=== PATIENT | female | born 1985 | race Caucasian/White ===

== ENCOUNTER 2018-03-23 08:00 | Day surgery (SDC) | payer MEDICAID ==
[2018-03-09 14:50] LABS: BASOPHILS % (AUTO) 0.6 % (0-1); EOSINOPHILS # (AUTO) 0.1 X10'3 (0-0.9); EOSINOPHILS % (AUTO) 2.7 % (0-6); LYMPHOCYTES # (AUTO) 1.6 X10'3 (1.1-4.8); LYMPHOCYTES % (AUTO) 28.7 % (21-51); MEAN CORPUSCULAR HEMOGLOBIN 30.2 PG (27.0-31.0); MEAN CORPUSCULAR HGB CONC 33.8 % (33.0-36.5); MEAN CORPUSCULAR VOLUME 89.4 FL (78-98); MEAN PLATELET VOLUME 7.6 FL (7.4-10.4); MONOCYTES # (AUTO) 0.5 X10'3 (0-0.9); MONOCYTES % (AUTO) 8.6 % (2-12); NEUTROPHILS # (AUTO) 3.2 X10'3 (1.8-7.7); NEUTROPHILS % (AUTO) 59.4 % (42-75); PRE OP HEMATOCRIT 38.1 % (35.0-45.0); PRE OP HEMOGLOBIN 12.9 g/dL (12.0-16.0); PRE OP PLATELET COUNT 254 X10'3 (140-440); RED BLOOD COUNT 4.26 X10'6 (4.20-5.60); RED CELL DISTRIBUTION WIDTH 12.9 % (11.5-14.5)
[2018-03-09 15:40] LABS: HCG SERUM QL NEGATIVE
[2018-03-23] VITALS (12 sets, daily range): BP systolic 109–129; BP diastolic 60–81
[~2018-03-23] VITALS: Ht 177.8 cm; Wt 99.1 kg
[~2018-03-23 08:00] MED LIST: NO HOME MEDS; ceFAZolin 1GM/D5W- ADD-VANTAGE 50 ML IV ONE; famotidine 20mg tablet PO ONE; ringers solution, lacted 1,000 ML IV SCH
[2018-03-23] MEDS ORDERED: BUPIVAcaine/PF 2.5mg/ml (0.25%) 10ml vial ONE ×2 (09:34→10:36)
[2018-03-23] MEDS ORDERED: LIDOcaine 0.5% (5mg/ml) 50ml vial ONE (09:45)
[2018-03-23] MEDS ORDERED: fentaNYL/PF 50MCG/1 ML 2ML syringe ONE (09:48)
[2018-03-23] MEDS ORDERED: midazolam 2 mg/2 ml injection ONE ×2 (09:49→09:55)
[2018-03-23] MEDS ORDERED: ringers solution, lacted 1,000 ML IV SCH (10:36)
[2018-03-23] MEDS ORDERED: propofol inj 20 ML IV ONE (10:39)
[2018-03-23] MEDS ORDERED: ondansetron/PF 4mg/2ml inj IV PRN (10:40)
[2018-03-23] MEDS ORDERED: proCHLORperazine 10 MG/2 ml inj IV PRN (10:40)
[2018-03-23] MEDS ORDERED: meperidine/PF 25mg/ml syringe IV PRN ×3 (10:40)
[2018-03-23] MEDS ORDERED: morphine 4 MG/ML inj SYRINge IV PRN ×2 (10:40)
--- NOTE | 2018-03-23 10:45 | NUR ---
Received from OR via [facility], accompanied by Anesthesiologist DR VAUGHAN and report given by Anesthesiologist. PT VERY DROWSY, VSS, RIGHT HAND/WRIST W/DRSG, ARASH WRAP CDI, FINGERS PWD. Addendum: 03/23/18 at 1101 by Dianne Luke RN Amended: Links added.
== END 2018-03-23 12:35 | disposition home or self-care (01) ==
LOC: PAS 08:00
PROVIDERS: ATTEND Orthopaedic Surgery Hand Surgery
DX: M65.831 Other synovitis and tenosynovitis, right forearm (principal); M25.831 Other specified joint disorders, right wrist; G89.29 Other chronic pain; F32.9 Major depressive disorder, single episode, unspecified; F41.8 Other specified anxiety disorders; Z87.440 Personal history of urinary (tract) infections; Z72.89 Other problems related to lifestyle; Z98.51 Tubal ligation status; Z79.891 Long term (current) use of opiate analgesic; Z79.899 Other long term (current) drug therapy; Z98.890 Other specified postprocedural states
CPT/HCPCS: 29846; 36415; 84703; 85025; A6449; J0690; J2001; J2175; J2250; J2405; J2704; J3010; J3490; J7120; A7000

== ENCOUNTER 2018-09-28 05:20 | Day surgery (SDC) | payer MEDICAID ==
[2018-09-24 11:52] LABS: BASOPHILS % (AUTO) 0.7 % (0-1); EOSINOPHILS # (AUTO) 0.2 X10'3 (0-0.9); EOSINOPHILS % (AUTO) 3.1 % (0-6); LYMPHOCYTES # (AUTO) 1.6 X10'3 (1.1-4.8); LYMPHOCYTES % (AUTO) 31.6 % (21-51); MEAN CORPUSCULAR HEMOGLOBIN 30.2 PG (27.0-31.0); MEAN CORPUSCULAR HGB CONC 33.6 g/dL (33.0-36.5); MEAN CORPUSCULAR VOLUME 90.1 FL (78-98); MEAN PLATELET VOLUME 7.8 FL (7.4-10.4); MONOCYTES # (AUTO) 0.5 X10'3 (0-0.9); MONOCYTES % (AUTO) 10.1 % (2-12); NEUTROPHILS # (AUTO) 2.7 X10'3 (1.8-7.7); NEUTROPHILS % (AUTO) 54.5 % (42-75); PRE OP HEMATOCRIT 37.9 % (35.0-45.0); PRE OP HEMOGLOBIN 12.7 g/dL (12.0-16.0); PRE OP PLATELET COUNT 249 X10'3 (140-440); RED BLOOD COUNT 4.21 X10'6 (4.20-5.60); RED CELL DISTRIBUTION WIDTH 12.9 % (11.5-14.5)
[2018-09-28] VITALS (12 sets, daily range): BP systolic 103–120; BP diastolic 56–78
[~2018-09-28] VITALS: Ht 177.8 cm; Wt 72.9 kg
[~2018-09-28 05:20] MED LIST changes: -ceFAZolin 1GM/D5W- ADD-VANTAGE 50 ML IV ONE; -famotidine 20mg tablet PO ONE; -ringers solution, lacted 1,000 ML IV SCH
[2018-09-28] MEDS ORDERED: ringers solution, lacted 1,000 ML IV SCH ×2 (05:45→07:22)
[2018-09-28] MEDS ORDERED: ceFAZolin 1GM/D5W- ADD-VANTAGE 50 ML IV ONE (05:45)
[2018-09-28] MEDS ORDERED: famotidine 20mg tablet PO ONE (05:45)
[2018-09-28] MEDS ORDERED: LIDOcaine 1% (10mg/ml) 2ml vial ONE (06:07)
[2018-09-28] MEDS ORDERED: scopolamine 1.5mg patch.TD72 TD ONE (06:20)
[2018-09-28] MEDS ORDERED: BUPIVAcaine/PF 2.5 mg/ml (0.25%) 30ml vial ONE (07:16)
[2018-09-28] MEDS ORDERED: propofol 10mg/ml 20ml vial IV ONE (07:22)
[2018-09-28] MEDS ORDERED: morphine 4 MG/ML inj SYRINge IV PRN ×2 (07:25)
[2018-09-28] MEDS ORDERED: proCHLORperazine 10 MG/2 ml inj IV PRN (07:25)
[2018-09-28] MEDS ORDERED: meperidine/PF 25mg/ml syringe IV PRN ×3 (07:25)
[2018-09-28] MEDS ORDERED: ondansetron/PF 4mg/2ml inj IV PRN (07:25)
[2018-09-28] MEDS ORDERED: LIDOcaine 1% 30ml preserv. free vial ONE (07:31)
[2018-09-28] MEDS ORDERED: fentaNYL/PF 50MCG/1 ML 2ML syringe ONE (07:34)
[2018-09-28] MEDS ORDERED: MIDAZolam 5mg/5ml vial ONE (07:36)
[2018-09-28] MEDS ORDERED: ketorolac trometh. 30mg/ml inj. ONE (07:37)
[2018-09-28] MEDS ORDERED: 0.9 % SODIUM CHLORIDE 10 ML VIAL ONE (07:42)
--- NOTE | 2018-09-28 08:15 | NUR ---
Received from OR via [facility], accompanied by Anesthesiologist DR. TROTTER and report given by Anesthesiolgist. PT ARRIVED ON RA VSS. 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 OLGUIN WITH GOOD CSM. DRESSING CDI. ICE TO RT BACK OF HAND
--- NOTE | 2018-09-28 09:15 | NUR ---
Report called to receiving nurse LENNY. Transferred TO PAS via GURNEY WITH Belongings X1 BAG. Special Issues communicated to receiving nurse. PT SLOW TO WAKE NEED TIME TO SLEEP. VSS ON RA. DRESSING CDI.
--- NOTE | 2018-09-28 09:16 | NUR ---
PLEASE NOTE PT'S 0910 TIME FOR RECIEVED TO PAS UNIT IS ACTUALLY 0916.
== END 2018-09-28 11:20 | disposition home or self-care (01) ==
LOC: PAS 05:20
PROVIDERS: ATTEND Orthopaedic Surgery Hand Surgery
DX: S63.8X1A Sprain of other part of right wrist and hand, initial encounter (principal); G90.511 Complex regional pain syndrome I of right upper limb; F41.8 Other specified anxiety disorders; Z79.899 Other long term (current) drug therapy; Z98.51 Tubal ligation status; M65.841 Other synovitis and tenosynovitis, right hand; Z98.890 Other specified postprocedural states; X58.XXXA Exposure to other specified factors, initial encounter; Y93.89 Activity, other specified; Y92.89 Other specified places as the place of occurrence of the external cause; Y99.8 Other external cause status
CPT/HCPCS: 29846; 36415; 82948; 85025; J0690; J1885; J2001; J2250; J2405; J3010; J3490; J7120; A6449; A7000; J2704

== ENCOUNTER 2022-01-03 08:09 | Inpatient (IN) | payer MEDICAID ==
[2021-12-28 10:55] LABS: ALBUMIN/GLOBULIN RATIO 1.1 (1.1-1.5); ALKALINE PHOSPHATASE 53 IU/L (46-116); BLOOD UREA NITROGEN 10 MG/DL (7-18); BUN/CREATININE RATIO 17.5 (6.6-38.0); CHLORIDE 104 MMOL/L (99-107); CREATININE 0.57 MG/DL (0.40-0.90); PRE OP ALT 13 U/L (30-65); PRE OP ANION GAP 7 (8-16); PRE OP AST 10 U/L (10-37); PRE OP BILIRUB, TOTAL 0.6 MG/DL (0.0-1.0); PRE OP GLUCOSE 75 MG/DL (70-104); PRE OP POTASSIUM 4.1 MMOL/L (3.4-5.1); PRE OP SODIUM 141 MMOL/L (135-145); TOTAL PROTEIN 7.7 G/DL (6.4-8.2); eGFR > 90 ML/MIN
[2021-12-28 11:02] LABS: BASOPHILS % (AUTO) 0.7 % (0-1); EOSINOPHILS # (AUTO) 0.1 X10'3 (0-0.9); EOSINOPHILS % (AUTO) 1.9 % (0-6); LYMPHOCYTES # (AUTO) 1.4 X10'3 (1.1-4.8); LYMPHOCYTES % (AUTO) 30.1 % (21-51); MEAN CORPUSCULAR HEMOGLOBIN 30.9 PG (27.0-31.0); MEAN CORPUSCULAR HGB CONC 34.2 g/dL (33.0-36.5); MEAN CORPUSCULAR VOLUME 90.3 FL (78-98); MEAN PLATELET VOLUME 7.7 FL (7.4-10.4); MONOCYTES # (AUTO) 0.4 X10'3 (0-0.9); MONOCYTES % (AUTO) 9.7 % (2-12); NEUTROPHILS # (AUTO) 2.7 X10'3 (1.8-7.7); NEUTROPHILS % (AUTO) 57.6 % (42-75); PRE OP HEMATOCRIT 38.9 % (35.0-45.0); PRE OP HEMOGLOBIN 13.3 g/dL (12.0-16.0); PRE OP PLATELET COUNT 237 X10'3 (140-440); RED CELL DISTRIBUTION WIDTH 12.9 % (11.5-14.5)
[2021-12-28 11:06] LABS: HCG SERUM QL NEGATIVE
[2022-01-03] VITALS (37 sets, daily range): BP systolic 102–123; BP diastolic 57–76
[~2022-01-03] VITALS: Ht 177.8 cm; Wt 73.5 kg
[~2022-01-03 08:09] MED LIST changes: +DICL100G30 TOP; +ESCI-8 PO; +ETHY1TAB6 PO; -NO HOME MEDS; +TRAZ-251 PO; +famotidine 20mg tablet PO ONE; +meperidine/PF 25mg/ml syringe IV PRN; +morphine 2 MG/ML inj. syringe IV PRN; +morphine 4 MG/ML inj SYRINge IV PRN; +ondansetron/PF 4mg/2ml inj IV PRN; +ringers solution, lacted 1,000 ML IV SCH
[2022-01-03] MEDS ORDERED: ceFOXitin 2GM-NS 100mL ADDvant 100 ML IV ONE ×2 (08:30→08:35)
[2022-01-03] MEDS: ringers solution, lacted 1,000 ML IV SCH ×4 (09:03→20:50)
[2022-01-03] MEDS ORDERED: BUPIVAcaine/PF 5 mg/ml 10ml ONE (10:00)
[2022-01-03] MEDS ORDERED: LIDOCAINE 1%/EPI 1:100,000 inj. 10 ML multi-dose vial ONE (10:01)
[2022-01-03] MEDS ORDERED: ceFAZolin 1000mg inj ONE (10:01)
[2022-01-03] MEDS ORDERED: aprepitant 40mg capsule PO ONE (10:12)
[2022-01-03] MEDS ORDERED: midazolam 1 mg/ML 2ml injection ONE (10:26)
[2022-01-03] MEDS ORDERED: fentaNYL /PF 50mcg/ml 5ml ampule ONE (10:26)
[2022-01-03] MEDS ORDERED: propofol inj 20 ML IV ONE (10:29)
[2022-01-03] MEDS ORDERED: LIDOcaine 1%/PF 5ML 10 MG/ML VIAL ONE (10:29)
[2022-01-03] MEDS ORDERED: rocuronium 10mg/ml inj IV ONE (10:33)
[2022-01-03] MEDS ORDERED: ondansetron/PF 4mg/2ml inj ONE (12:24)
[2022-01-03] MEDS ORDERED: oxyCODONE/APAP 5-325mg tablet PO PRN (12:50)
[2022-01-03] MEDS ORDERED: diphenhydrAMINE 50 mg/ml inj IV PRN (12:50)
[2022-01-03] MEDS ORDERED: normal saline 500ML IV soln IV PRN (12:50)
[2022-01-03] MEDS ORDERED: normal saline 1000ml 1,000 ML IV SCH (12:50)
[2022-01-03] MEDS ORDERED: ondansetron/PF 4mg/2ml inj IV PRN (12:50)
[2022-01-03] MEDS ORDERED: temazepam 15mg capsule PO PRN (12:50)
[2022-01-03] MEDS ORDERED: mag hydrox/Alum hydrox/simeth 30ml oral suspension PO PRN (12:50)
[2022-01-03] MEDS ORDERED: naloxone 0.4 mg/ml inj IV PRN ×2 (12:50)
[2022-01-03] MEDS: simethicone 80mg chew tab PO SCH ×2 (13:00→18:00)
--- NOTE | 2022-01-03 13:00 | NUR ---
Received from OR via BED, accompanied by Anesthesiologist DR RUEDA and report given by Anesthesiologist AND [employer]. PT DROWSY, DENIES PAIN. ABDOMEN W/3 LAP SITES W/DERMABOND CDI, INDIGO PAD IN PLACE. WESTON CATHETER TO GRAVITY DRAINAGE W/BRIGHT YELLOW URINE IN DRAINAGE BAG. Addendum: 01/03/22 at 1338 by Dianne Luke RN Amended: Links added.
[2022-01-03] MEDS: meperidine/PF 25mg/ml syringe IV PRN ×2 (13:41→14:23)
[2022-01-03] MEDS: proCHLORperazine 10 MG/2 ml inj IV PRN ×2 (13:46→14:16)
[2022-01-03] MEDS: HYDROmorph/NS 0.2 mg/ml PCA 100 ML IV SCH ×6 (15:00→23:00)
[2022-01-03] MEDS: ketorolac trometh. 30mg/ml inj. IV PRN (15:01)
[2022-01-03] MEDS ORDERED: scopolamine 1.5mg patch.TD72 (72-hour patch) TD ONE (15:10)
[2022-01-03] MEDS ORDERED: scopolamine 1mg/72 hr patch TD ONE (15:35)
[2022-01-03] MEDS ORDERED: LORazepam 2 mg/ml vial IV PRN (16:10)
[2022-01-03] MEDS: phenazopyridine 100mg tablet PO PRN (16:31)
--- NOTE | 2022-01-03 17:20 | NUR ---
Report called to receiving nurse. 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 Transferred via BED, 1 BAG OF Belongings SENT W/PT TO ROOM 347B. BLL, CALL LIGHT GIVEN, SIDE RAILS UP X 2, RECEIVING RN AT BEDSIDE TO RECEIVE PT, ATTACHED PT TO VS. Special Issues communicated to receiving nurse. YES. Addendum: 01/03/22 at 1751 by Dianne Luke RN Amended: Links added.
--- NOTE | 2022-01-03 18:34 | NUR ---
Problems reprioritized. Patient report given, questions answered & plan of care reviewed with Alina Fuller RN.
--- NOTE | 2022-01-03 18:35 | NUR ---
Patient in room [facility]. I have received report from AL PAULSON and had the opportunity to ask questions and assume patient care.
[2022-01-03] MEDS: docusate sod 100mg capsule PO SCH (20:00)
[2022-01-04] MEDS: HYDROmorph/NS 0.2 mg/ml PCA 100 ML IV SCH ×5 (01:00→09:00)
[2022-01-04 02:00] VITALS: BP 101/52
[2022-01-04] MEDS: ringers solution, lacted 1,000 ML IV SCH ×2 (02:26→09:44)
[2022-01-04 06:00] VITALS: BP 100/54
--- NOTE | 2022-01-04 06:30 | NUR ---
Problems reprioritized. Patient report given, questions answered & plan of care reviewed with AL PAULSON.
--- NOTE | 2022-01-04 07:10 | NUR ---
Patient in room [facility] 347. I have received report from Alina Fuller RN and had the opportunity to ask questions and assume patient care.
[2022-01-04 07:27] LABS: BASOPHILS % (AUTO) 0.1 % (0-1); EOSINOPHILS % (AUTO) 0 % (0-6); HEMOGLOBIN 11.6 g/dl (12.0-16.0); LYMPHOCYTES % (AUTO) 7.3 % (21-51); MEAN CORPUSCULAR HEMOGLOBIN 30.4 PG (27.0-31.0); MEAN CORPUSCULAR VOLUME 89.3 FL (78-98); MEAN PLATELET VOLUME 7.6 FL (7.4-10.4); MONOCYTES % (AUTO) 7.2 % (2-12); NEUTROPHILS # (AUTO) 11.8 X10'3 (1.8-7.7); NEUTROPHILS % (AUTO) 85.4 % (42-75); PLATELET COUNT 216 X10'3 (140-440); RED BLOOD COUNT 3.81 X10'6 (4.20-5.60); RED CELL DISTRIBUTION WIDTH 12.2 % (11.5-14.5); WHITE BLOOD COUNT 13.8 X10'3 (4.5-11.0)
[2022-01-04] MEDS: ketorolac trometh. 30mg/ml inj. IV PRN ×2 (07:33→16:21)
[2022-01-04] MEDS: docusate sod 100mg capsule PO SCH (07:46)
[2022-01-04] MEDS: simethicone 80mg chew tab PO SCH ×2 (07:47→13:26)
[2022-01-04 07:54] LABS: ALBUMIN 3.1 G/DL (3.4-5.0); ANION GAP 7 (8-16); BLOOD UREA NITROGEN 8 MG/DL (7-18); BUN/CREATININE RATIO 12.1 (6.6-38.0); CALCIUM 8.3 MG/DL (8.5-10.1); CHLORIDE 105 MMOL/L (99-107); CREATININE 0.66 MG/DL (0.40-0.90); GLUCOSE 118 MG/DL (70-104); POTASSIUM 3.8 MMOL/L (3.5-5.1); SODIUM 139 MMOL/L (135-145); TOTAL CARBON DIOXIDE 26.8 MMOL/L (24-32); eGFR > 90 ML/MIN
[2022-01-04] MEDS: phenazopyridine 100mg tablet PO PRN (09:37)
[2022-01-04] MEDS: oxyCODONE/APAP 5-325mg tablet PO PRN ×2 (10:52→16:36)
[2022-01-04] MEDS ORDERED: PCA WASTE DOCUMENTATION MC SCH (11:05)
[2022-01-04 12:39] VITALS: BP 100/63
[2022-01-04 14:25] VITALS: BP 108/71
[2022-01-04] MEDS ORDERED: LIDOcaine 2% 10ml TOPICAL JELLY (Urojet) TP ONE (14:59)
--- NOTE | 2022-01-04 16:50 | NUR ---
Student documentation: I have reviewed and agree with all interventions, assessments performed and documented by DEANNA ANNE [facility] STUDENT.
--- NOTE | 2022-01-04 17:45 | NUR ---
Patients discharge instructions reviewed with patient mother in law all questions answered. Educated on how to empty elias and elias care. Patients mother in law verbalized understanding and mother in law did a return demonstration on how to empty elias. Patients IV dc'd cannula intact. Patient was assisted in getting dressed. patient states has all belongings. Patient was taken to mother in laws vehicle via wheelchair.
--- NOTE | 2022-01-05 08:58 | NUR ---
Pt phoned stating she has much more abdominal distention than at DC'g. Pt stated she's left messages at Dr Jackson's office and has not received a rtn call. This RN contacted Dr Jackson and she stated she would call Stew directly. Stew was notified of same.
== END 2022-01-04 18:00 | disposition home or self-care (01) | DRG 513 ==
LOC: PAS 08:09 → OBSVTOIN 17:04 → SUR 3N 17:04
PROVIDERS: ADMIT Obstetrics & Gynecology; ATTEND Obstetrics & Gynecology
PROC: 0UT7FZZ Resection of Bilateral Fallopian Tubes, Via Natural or Artificial Opening With Percutaneous Endoscopic Assistance (ICD-10-PCS; 2022-01-03)
PROC: 0USG4ZZ Reposition Vagina, Percutaneous Endoscopic Approach (ICD-10-PCS; 2022-01-03)
PROC: 0TJB8ZZ Inspection of Bladder, Via Natural or Artificial Opening Endoscopic (ICD-10-PCS; 2022-01-03)
PROC: 0UT9FZZ Resection of Uterus, Via Natural or Artificial Opening With Percutaneous Endoscopic Assistance (ICD-10-PCS; principal; 2022-01-03 10:20)
DX: N92.0 Excessive and frequent menstruation with regular cycle (principal); F32.A Depression, unspecified; N80.03 Adenomyosis of the uterus; F41.9 Anxiety disorder, unspecified; N81.4 Uterovaginal prolapse, unspecified; N94.6 Dysmenorrhea, unspecified
CPT/HCPCS: 36415; 80048; 80053; 82948; 84703; 85025; 86885; 86900; 86901; 87081; A4314; A4355; A4618; A6250; A6258; A7000; C1758; G0378; J0690; J0780; J1170; J1885; J2060; J2175; J2250; J2405; J2704; J3010; J3490; J7120; J8501

== ENCOUNTER 2022-02-16 10:20 | Emergency (ER) | payer MEDICAID ==
[~2022-02-16] VITALS: Ht 177.8 cm; Wt 72.7 kg
[2022-02-16 11:03] LABS: BASOPHILS % (AUTO) 0.7 % (0-1); EOSINOPHILS # (AUTO) 0.1 X10'3 (0-0.9); EOSINOPHILS % (AUTO) 2.6 % (0-6); HEMATOCRIT 38.1 % (35.0-45.0); HEMOGLOBIN 12.7 g/dl (12.0-16.0); LYMPHOCYTES # (AUTO) 1.5 X10'3 (1.1-4.8); LYMPHOCYTES % (AUTO) 28.9 % (21-51); MEAN CORPUSCULAR HEMOGLOBIN 29.9 PG (27.0-31.0); MEAN CORPUSCULAR HGB CONC 33.4 g/dL (33.0-36.5); MEAN CORPUSCULAR VOLUME 89.3 FL (78-98); MEAN PLATELET VOLUME 7.4 FL (7.4-10.4); MONOCYTES # (AUTO) 0.4 X10'3 (0-0.9); MONOCYTES % (AUTO) 8.3 % (2-12); NEUTROPHILS # (AUTO) 3.2 X10'3 (1.8-7.7); NEUTROPHILS % (AUTO) 59.5 % (42-75); PLATELET COUNT 265 X10'3 (140-440); RED BLOOD COUNT 4.26 X10'6 (4.20-5.60); RED CELL DISTRIBUTION WIDTH 12.7 % (11.5-14.5); WHITE BLOOD COUNT 5.3 X10'3 (4.5-11.0)
[2022-02-16] MEDS ORDERED: ketorolac trometh inj. 60 MG/2 ML VIAL IM ONE (12:50)
[2022-02-16] MEDS ORDERED: ondansetron 4mg rapidly disintigrating tab PO ONE (12:50)
[2022-02-16 14:20] LABS: URINE HCG NEGATIVE (NEG)
[2022-02-16 14:28] LABS: CLARITY,URINE CLOUDY (Clear); COLOR,URINE YELLOW (Yellow); GLUCOSE, URINE NEGATIVE (Neg); KETONES,URINE NEGATIVE (Neg); LEUKOCYTE ESTERASE ,URINE LARGE (Neg); NITRITES, URINE NEGATIVE (Neg); OCCULT BLOOD,URINE TRACE-INTACT (Neg); PROTEIN,URINE NEGATIVE (Neg); UROBILINOGEN,URINE 0.2 E.U/dL (0.2-1.0)
[2022-02-16 14:36] LABS: UA COLLECTION TYPE CLN CATCH MIDSTREAM
[2022-02-16 14:42] LABS: ALANINE AMINOTRANSFERASE 9 U/L (12-78); ALBUMIN 3.8 G/DL (3.4-5.0); ALKALINE PHOSPHATASE 55 IU/L (46-116); ANION GAP 12 (8-16); ASPARTATE AMINO TRANSFERASE 11 U/L (10-37); BILIRUBIN,TOTAL 0.6 MG/DL (0.1-1.0); BLOOD UREA NITROGEN 7 MG/DL (7-18); BUN/CREATININE RATIO 11.5 (6.6-38.0); CALCIUM 9.1 MG/DL (8.5-10.1); CHLORIDE 105 MMOL/L (99-107); CREATININE 0.61 MG/DL (0.40-0.90); GLUCOSE 84 MG/DL (70-104); LIPASE 118 U/L (73-393); SODIUM 143 MMOL/L (135-145); TOTAL CARBON DIOXIDE 26.4 MMOL/L (24-32); TOTAL PROTEIN 7.5 G/DL (6.4-8.2); eGFR > 90 ML/MIN
[2022-02-16 14:50] LABS: RBC,URINE NONE SEEN /HPF (0-2); WBC,URINE 50-100 /HPF (0-4)
[2022-02-16 14:51] LABS: BACTERIA,URINE 2+ /HPF (Neg); MUCUS STRANDS MODERATE /LPF (Neg); SQUAMOUS EPITHELIAL CELL,UR MANY /LPF (FEW)
[2022-02-16] MEDS ORDERED: CEPH-585 PO (14:51)
[2022-02-16 14:52] LABS: WBC CLUMPS,URINE FEW /HPF (NEGATIVE)
[2022-02-16 15:19] VITALS: BP 100/65
--- NOTE | 2022-02-16 15:23 | NUR ---
pT REMAINS STABLE WITH NO NEW COMPLAINTS. VERBALIZED UNDERSTANDING OF ALL DC INSTRUCITONS AND RX EDUCATION. PT AMBUALTORY WITH STEADY GAIT. ALL BELONGINGS TAKEN BY PATIENT.
== END 2022-02-16 15:35 | disposition home or self-care (01) ==
LOC: ER 10:21
DX: T81.9XXA Unspecified complication of procedure, initial encounter (principal); R10.11 Right upper quadrant pain; R10.30 Lower abdominal pain, unspecified; N39.0 Urinary tract infection, site not specified; Z79.1 Long term (current) use of non-steroidal anti-inflammatories (NSAID)
CPT/HCPCS: 36415; 76700; 80053; 81001; 81025; 83690; 85025; 96372; 99284; J1885

== ENCOUNTER 2022-06-16 11:16 | Emergency (ER) | payer MEDICAID ==
[~2022-06-16] VITALS: Ht 177.8 cm; Wt 75.0 kg
[~2022-06-16 11:16] MED LIST changes: +CEPH-585 PO; -DICL100G30 TOP; -ESCI-8 PO; -ETHY1TAB6 PO; -TRAZ-251 PO; -famotidine 20mg tablet PO ONE; -meperidine/PF 25mg/ml syringe IV PRN; -morphine 2 MG/ML inj. syringe IV PRN; -morphine 4 MG/ML inj SYRINge IV PRN; -ondansetron/PF 4mg/2ml inj IV PRN; -ringers solution, lacted 1,000 ML IV SCH
[2022-06-16 11:39] VITALS: BP 102/76
[2022-06-16] MEDS ORDERED: ketorolac trometh. 30mg/ml inj. IM ONE (12:40)
== END 2022-06-16 12:57 | disposition home or self-care (01) ==
LOC: ER 11:17
DX: G62.89 Other specified polyneuropathies (principal); M25.531 Pain in right wrist; Z87.448 Personal history of other diseases of urinary system; Z90.49 Acquired absence of other specified parts of digestive tract
CPT/HCPCS: 96372; 99284; J1885

== ENCOUNTER 2023-08-18 06:34 | Inpatient (IN) | payer MEDICAID ==
[2023-08-11 10:31] LABS: BASOPHILS % (AUTO) 0.8 % (0-1); EOSINOPHILS # (AUTO) 0.2 X10'3 (0-0.9); EOSINOPHILS % (AUTO) 4.1 % (0-6); LYMPHOCYTES # (AUTO) 1.4 X10'3 (1.1-4.8); LYMPHOCYTES % (AUTO) 24.6 % (21-51); MEAN CORPUSCULAR HEMOGLOBIN 29.9 PG (27.0-31.0); MEAN CORPUSCULAR HGB CONC 33.1 g/dL (33.0-36.5); MEAN CORPUSCULAR VOLUME 90.5 FL (78-98); MEAN PLATELET VOLUME 7.5 FL (7.4-10.4); MONOCYTES # (AUTO) 0.5 X10'3 (0-0.9); MONOCYTES % (AUTO) 8.6 % (2-12); NEUTROPHILS # (AUTO) 3.5 X10'3 (1.8-7.7); NEUTROPHILS % (AUTO) 61.9 % (42-75); PRE OP HEMATOCRIT 38.2 % (35.0-45.0); PRE OP HEMOGLOBIN 12.6 g/dL (12.0-16.0); PRE OP PLATELET COUNT 266 X10'3 (140-440); PRE OP WHITE BLOOD COUNT 5.7 10'3 (4.8-10.8); RED BLOOD COUNT 4.22 X10'6 (4.20-5.60); RED CELL DISTRIBUTION WIDTH 13.5 % (11.5-14.5)
[2023-08-11 10:37] LABS: BILIRUBIN,URINE NEGATIVE (Neg); CLARITY,URINE CLOUDY (Clear); COLOR,URINE YELLOW (Yellow); GLUCOSE, URINE NEGATIVE (Neg); KETONES,URINE NEGATIVE (Neg); LEUKOCYTE ESTERASE ,URINE NEGATIVE (Neg); NITRITES, URINE NEGATIVE (Neg); OCCULT BLOOD,URINE NEGATIVE (Neg); PH,URINE 6.5 (4.8-8.0); PROTEIN,URINE NEGATIVE (Neg); UROBILINOGEN,URINE 0.2 E.U/dL (0.2-1.0)
[2023-08-11 10:43] LABS: PRE OP PROTIME 10.3 SECONDS (9.0-12.0)
[2023-08-11 10:43] LABS: UA COLLECTION TYPE NON-SPECIFIED
[2023-08-11 10:44] LABS: BACTERIA,URINE 3+ /HPF (Neg); MUCUS STRANDS MODERATE /LPF (Neg); RBC,URINE 0-2 /HPF (0-2); SQUAMOUS EPITHELIAL CELL,UR MANY /LPF (FEW); WBC,URINE 0-4 /HPF (0-4)
[2023-08-11 11:10] LABS: ALBUMIN 3.7 G/DL (3.4-5.0); ALKALINE PHOSPHATASE 69 IU/L (46-116); BLOOD UREA NITROGEN 9 MG/DL (7-18); BUN/CREATININE RATIO 15.5 (10.0-20.0); CALCIUM 8.6 MG/DL (8.5-10.1); CHLORIDE 104 MMOL/L (99-107); CREATININE 0.58 MG/DL (0.40-0.90); PRE OP ALT 36 U/L (30-65); PRE OP ANION GAP 6 (8-16); PRE OP AST 19 U/L (10-37); PRE OP BILIRUB, TOTAL 0.4 MG/DL (0.0-1.0); PRE OP GLUCOSE 83 MG/DL (70-104); PRE OP POTASSIUM 3.7 MMOL/L (3.4-5.1); PRE OP SODIUM 139 MMOL/L (135-145); TOTAL CARBON DIOXIDE 29.1 MMOL/L (24-32); TOTAL PROTEIN 7.5 G/DL (6.4-8.2); eGFR > 90 ML/MIN
[~2023-08-18] VITALS: Ht 177.8 cm; Wt 82.6 kg
[2023-08-18] VITALS (37 sets, daily range): BP systolic 100–127; BP diastolic 54–79; PULSE 74–96; RESP 13–23; TEMP 96.8–98.9; O2SAT 91–100
[2023-08-18] MEDS: ceFOXitin 2GM-NS 100mL ADDvant 100 ML IV ONE (05:30)
[2023-08-18] MEDS: BUPIVAcaine/PF 2.5mg/ml (0.25%) 10ml vial ONE (06:16)
[2023-08-18] MEDS: BUPIVACAINE liposomal/PF 13.3 MG/ML vial IM ONE (06:16)
[~2023-08-18 06:34] MED LIST changes: +BUSP7.5T5 PO; -CEPH-585 PO; +DULO60CA65 PO; +LORA-268 PO; +SENN-367; +TRAZ-251 PO
[2023-08-18] MEDS: famotidine 20mg tablet PO ONE (07:50)
[2023-08-18] MEDS: ringers solution, lacted 1,000 ML IV SCH ×2 (07:51→11:50)
[2023-08-18] MEDS: scopolamine 1MG/72H patch 1 PATCH PATCH.TD.3 TD ONE (08:54)
[2023-08-18] MEDS: BUPIVAcaine/PF 2.5mg/ml (0.25%) 10ml vial IJ ONE (09:00)
[2023-08-18] MEDS ORDERED: sevoflurane 250ml liquid IH ONE (09:11)
[2023-08-18] MEDS ORDERED: propofol inj 20 ML IV ONE (09:16)
[2023-08-18] MEDS ORDERED: fentaNYL/PF 50MCG/1 ML 2ML syringe ONE (09:16)
[2023-08-18] MEDS ORDERED: midazolam 1 mg/ML 2ml injection ONE (09:16)
[2023-08-18] MEDS ORDERED: rocuronium 10mg/ml inj IV ONE (09:16)
[2023-08-18] MEDS ORDERED: dexamethasone sod phosphate 4mg/ml inj. ONE (09:25)
[2023-08-18] MEDS ORDERED: ondansetron/PF 4mg/2ml inj ONE (10:56)
[2023-08-18] MEDS ORDERED: acetaminophen 1,000mg/100ml IV 100 ML IV ONE (10:57)
[2023-08-18] MEDS ORDERED: neostigmine methylsulfate 1 MG/ML 10ml vial ONE (11:04)
[2023-08-18] MEDS: meperidine/PF 25mg/ml syringe ONE (11:37)
[2023-08-18] MEDS ORDERED: morphine 2 MG/ML inj. syringe IV PRN (11:50)
[2023-08-18] MEDS ORDERED: proCHLORperazine 10 MG/2 ml inj IV PRN (11:50)
[2023-08-18] MEDS ORDERED: meperidine/PF 25mg/ml syringe IV PRN ×2 (11:50)
[2023-08-18] MEDS: meperidine/PF 25mg/ml syringe IV PRN (12:22)
[2023-08-18] MEDS: morphine 4 MG/ML inj SYRINge IV PRN (12:55)
[2023-08-18] MEDS ORDERED: naloxone 0.4 mg/ml inj IV PRN (13:40)
[2023-08-18] MEDS: ketorolac trometh. 30mg/ml inj. IV SCH (15:14)
[2023-08-18] MEDS: ondansetron/PF 4mg/2ml inj IV PRN (16:50)
[2023-08-18] MEDS: HYDROmorphone inj. 0.5 MG/0.5 ML DISP.SYRIN IV PRN (18:45)
[2023-08-19] MEDS: ondansetron/PF 4mg/2ml inj IV PRN (09:05)
[2023-08-19] MEDS ORDERED: oxyCODONE/APAP 5-325mg tablet PO PRN (10:25)
[2023-08-19] MEDS ORDERED: HYDROcodone/acetaminophen 5mg/325mg tablet PO PRN (11:10)
[2023-08-19] MEDS ORDERED: HYDR-3965 PO (11:13)
[2023-08-19 18:00] VITALS: BP 100/69; PULSE 71; RESP 14; TEMP 98.4; O2SAT 98
[2023-08-19] MEDS: HYDROcodone/acetaminophen 5mg/325mg tablet PO PRN (18:46)
[2023-08-19 20:00] VITALS: RESP 14; O2SAT 98
[2023-08-19 22:00] VITALS: BP 97/59; PULSE 75; RESP 16; TEMP 98.4; O2SAT 93
[2023-08-20] MEDS: ketorolac tromethamine 15mg/ml inj. IV SCH (00:49)
[2023-08-20 06:46] VITALS: BP 100/62; PULSE 63; RESP 16; TEMP 98.7; O2SAT 95
[2023-08-20 15:00] VITALS: RESP 16
== END 2023-08-20 15:41 | disposition home or self-care (01) | DRG 228 ==
LOC: PAS 06:34 → OBSVTOIN 13:41 → PAS IN 13:41 → SUR 3N 17:33
PROVIDERS: ADMIT Surgery; ATTEND Surgery
PROC: 8E0W4CZ Robotic Assisted Procedure of Trunk Region, Percutaneous Endoscopic Approach (ICD-10-PCS; 2023-08-18)
PROC: 0WUF4JZ Supplement Abdominal Wall with Synthetic Substitute, Percutaneous Endoscopic Approach (ICD-10-PCS; principal; 2023-08-18 09:11)
DX: K42.9 Umbilical hernia without obstruction or gangrene (principal)
CPT/HCPCS: 36415; 80053; 81001; 82948; 85025; 85610; 85730; A4215; A4314; A4618; C1781; C9290; G0378; J0131; J0694; J1100; J1170; J1885; J2175; J2250; J2270; J2405; J2704; J2710; J3010; J3490; J7120

== ENCOUNTER 2023-08-24 20:15 | Emergency (ER) | payer MEDICAID ==
[~2023-08-24] VITALS: Ht 177.8 cm; Wt 81.8 kg
[~2023-08-24 20:15] MED LIST changes: +HYDR-3965 PO
[2023-08-24 20:23] VITALS: TEMP 98
[2023-08-24] MEDS ORDERED: ketorolac trometh. 30mg/ml inj. IV ONE (22:40)
[2023-08-24 22:52] LABS: BASOPHILS # (AUTO) 0.1 X10'3 (0-0.2); BASOPHILS % (AUTO) 0.7 % (0-1); EOSINOPHILS # (AUTO) 0.6 X10'3 (0-0.9); EOSINOPHILS % (AUTO) 6.3 % (0-6); HEMATOCRIT 39.6 % (35.0-45.0); HEMOGLOBIN 13.3 g/dl (12.0-16.0); LYMPHOCYTES % (AUTO) 22.3 % (21-51); MEAN CORPUSCULAR HGB CONC 33.7 g/dL (33.0-36.5); MEAN CORPUSCULAR VOLUME 88.9 FL (78-98); MEAN PLATELET VOLUME 7.5 FL (7.4-10.4); MONOCYTES # (AUTO) 0.7 X10'3 (0-0.9); MONOCYTES % (AUTO) 7.7 % (2-12); NEUTROPHILS # (AUTO) 5.8 X10'3 (1.8-7.7); PLATELET COUNT 345 X10'3 (140-440); RED BLOOD COUNT 4.45 X10'6 (4.20-5.60); RED CELL DISTRIBUTION WIDTH 12.9 % (11.5-14.5); WHITE BLOOD COUNT 9.2 X10'3 (4.5-11.0)
[2023-08-24] MEDS: ketorolac tromethamine 15mg/ml inj. IV ONE (22:52)
[2023-08-24] MEDS: ondansetron/PF 4mg/2ml inj IV ONE (22:53)
[2023-08-24 22:59] LABS: ALBUMIN 3.9 G/DL (3.4-5.0); ANION GAP 10 (8-16); BLOOD UREA NITROGEN 14 MG/DL (7-18); BUN/CREATININE RATIO 20.9 (10.0-20.0); CALCIUM 9.6 MG/DL (8.5-10.1); CHLORIDE 102 MMOL/L (99-107); CREATININE 0.67 MG/DL (0.40-0.90); GLUCOSE 108 MG/DL (70-104); MAGNESIUM 2.1 MG/DL (1.5-2.4); SODIUM 140 MMOL/L (135-145); TOTAL CARBON DIOXIDE 27.6 MMOL/L (24-32); eCRCL 126 ML/MIN; eGFR > 90 ML/MIN
[2023-08-24] MEDS: normal saline 1000ml 1,000 ML IV ONE ×2 (23:08)
[2023-08-24] MEDS ORDERED: iohexol 300mg/ml 100ml inj. ONE (23:09)
[2023-08-25] MEDS: bisacodyl 10mg suppository rectal RC STA (00:23)
[2023-08-25] MEDS: bisacodyl 5mg tablet.DR PO ONE (00:37)
[2023-08-25 00:39] LABS: BILIRUBIN,URINE NEGATIVE (Neg); CLARITY,URINE SLIGHTLY CLOUDY (Clear); COLOR,URINE YELLOW (Yellow); GLUCOSE, URINE NEGATIVE (Neg); KETONES,URINE NEGATIVE (Neg); LEUKOCYTE ESTERASE ,URINE NEGATIVE (Neg); NITRITES, URINE NEGATIVE (Neg); OCCULT BLOOD,URINE NEGATIVE (Neg); PH,URINE 6.5 (4.8-8.0); PROTEIN,URINE NEGATIVE (Neg); UROBILINOGEN,URINE 0.2 E.U/dL (0.2-1.0)
[2023-08-25 00:41] LABS: UA COLLECTION TYPE CLN CATCH MIDSTREAM
[2023-08-25 00:44] LABS: MUCUS STRANDS NONE SEEN /LPF (Neg); SQUAMOUS EPITHELIAL CELL,UR MANY /LPF (FEW)
[2023-08-25 00:46] LABS: BACTERIA,URINE 2+ /HPF (Neg); RBC,URINE 0-2 /HPF (0-2); TRANSITIONAL EPI CELLS,URINE FEW /HPF
[2023-08-25 00:47] LABS: WBC,URINE 0-4 /HPF (0-4)
[2023-08-25] MEDS ORDERED: ONDA8TAB13 PO (01:04)
[2023-08-25] MEDS ORDERED: POLY119P2 PO (01:04)
[2023-08-25] MEDS ORDERED: BISA-78 PO (01:04)
[2023-08-25 01:15] VITALS: BP 108/76; PULSE 68; RESP 16; O2SAT 99
== END 2023-08-25 01:21 | disposition home or self-care (01) ==
LOC: ER 20:16
DX: R10.84 Generalized abdominal pain (principal); T81.89XA Other complications of procedures, not elsewhere classified, initial encounter; R11.2 Nausea with vomiting, unspecified; Z79.899 Other long term (current) drug therapy; Z90.710 Acquired absence of both cervix and uterus; Z72.89 Other problems related to lifestyle
CPT/HCPCS: 36415; 71045; 74177; 80048; 81001; 83605; 83735; 84145; 85025; 87040; 93005; 96361; 96374; 96375; 99285; J1885; J2405; J7030; Q9967

== ENCOUNTER 2024-03-12 19:37 | Emergency (ER) | payer MEDICAID ==
[~2024-03-12] VITALS: Ht 177.8 cm; Wt 86.6 kg
[~2024-03-12 19:37] MED LIST changes: +BISA-78 PO; -HYDR-3965 PO; +ONDA-245 PO; +POLY119P2 PO
[2024-03-12 19:41] VITALS: BP 123/75; PULSE 86; RESP 18; TEMP 98.1; O2SAT 94
[2024-03-12] MEDS ORDERED: iohexol 300mg/ml 100ml inj. ONE (19:58)
[2024-03-12 21:24] LABS: BILIRUBIN,URINE NEGATIVE (Neg); CLARITY,URINE SLIGHTLY CLOUDY (Clear); COLOR,URINE YELLOW (Yellow); GLUCOSE, URINE NEGATIVE (Neg); KETONES,URINE NEGATIVE (Neg); LEUKOCYTE ESTERASE ,URINE NEGATIVE (Neg); NITRITES, URINE NEGATIVE (Neg); OCCULT BLOOD,URINE NEGATIVE (Neg); PROTEIN,URINE NEGATIVE (Neg); UROBILINOGEN,URINE 0.2 E.U/dL (0.2-1.0)
[2024-03-12 21:29] LABS: UA COLLECTION TYPE CLN CATCH MIDSTREAM
[2024-03-12 21:30] LABS: BACTERIA,URINE 3+ /HPF (Neg); RBC,URINE NONE SEEN /HPF (0-2); SQUAMOUS EPITHELIAL CELL,UR MODERATE /LPF (FEW)
[2024-03-12] MEDS ORDERED: DOCU-148 PO (21:32)
[2024-03-12] MEDS ORDERED: OXYC-150 PO (21:32)
[2024-03-12] MEDS ORDERED: CYCL-394 PO (21:32)
[2024-03-12] MEDS: HYDROcodone/acetaminophen 10/325mg tab PO ONE (22:07)
[2024-03-12] MEDS: ketorolac trometh 15mg/ml vial 15 MG/ML ML IM ONE (22:08)
[2024-03-12] MEDS ORDERED: MAGN296S68 PO (22:35)
== END 2024-03-12 22:36 | disposition home or self-care (01) ==
LOC: ER 19:37
DX: S39.012A Strain of muscle, fascia and tendon of lower back, initial encounter (principal); Z79.899 Other long term (current) drug therapy; Z90.710 Acquired absence of both cervix and uterus; Z87.440 Personal history of urinary (tract) infections; W19.XXXA Unspecified fall, initial encounter; Y93.89 Activity, other specified; Y92.89 Other specified places as the place of occurrence of the external cause; Y99.8 Other external cause status
CPT/HCPCS: 74177; 81001; 87088; 96372; 99285; J1885; Q9967

== ENCOUNTER 2024-04-18 14:20 | Emergency (ER) | payer MEDICAID ==
[~2024-04-18] VITALS: Ht 177.8 cm; Wt 87.4 kg
[~2024-04-18 14:20] MED LIST changes: +DOCU-148 PO; +MAGN296S68 PO; +OXYC-150 PO
[2024-04-18 14:56] VITALS: BP 119/81; PULSE 79; RESP 16; O2SAT 98
[2024-04-18 17:33] VITALS: TEMP 98.2
== END 2024-04-18 17:35 | disposition home or self-care (01) ==
LOC: ER 14:21
DX: S93.401A Sprain of unspecified ligament of right ankle, initial encounter (principal); S96.911A Strain of unspecified muscle and tendon at ankle and foot level, right foot, initial encounter; S50.11XA Contusion of right forearm, initial encounter; Z90.710 Acquired absence of both cervix and uterus; W19.XXXA Unspecified fall, initial encounter; Y93.89 Activity, other specified; Y92.89 Other specified places as the place of occurrence of the external cause; Y99.8 Other external cause status
CPT/HCPCS: 73090; 73610; 73630; 99284